=== PATIENT | female | born 1940 | race Caucasian/White ===

== ENCOUNTER 2019-02-07 21:51 | Emergency (ER) | payer OTHER ==
[2019-02-07 22:06] VITALS: TEMP 98
--- NOTE | 2019-02-07 22:25 | C.PDOC ---
History Of Present Illness 78 year old female presents to the ED for evaluation of upper abdominal pain which developed over the past couple days. Patient also reports associated nausea and vomiting. Patient states she is able to tolerate some PO intake. She denies fever, chills, diarrhea, blood in stool or urine and dysuria. Chief Complaint (Nursing): Abdominal Pain History Per: Patient History/Exam Limitations: no limitations Onset/Duration Of Symptoms: Days (2) Current Symptoms Are (Timing): Still Present Location Of Pain/Discomfort: Other (upper abdomen ) Quality Of Discomfort: "Pain" Associated Symptoms: Nausea, Vomiting. denies: Fever, Chills, Diarrhea, Urinary Symptoms Additional History Per: Patient Past Medical History Reviewed: Historical Data, Nursing Documentation, Vital Signs Vital Signs: Last Vital Signs Temp 98 F 02/07/19 22:01 Pulse 75 02/07/19 22:01 Resp 20 02/07/19 22:01 BP 135/82 02/07/19 22:01 Pulse Ox 95 02/07/19 22:01 - Medical History PMH: HTN, Hyperlipidemia Denies: Chronic Kidney Disease Surgical History: No Surg Hx - [facility] Procedures DX ULTRASOUND-HEAD/NECK (04/12/13) PERCUTAN NEEDLE BX OF THYROID GLAND (04/12/13) Family History: States: Unknown Family Hx - Social History Hx Alcohol Use: No Hx Substance Use: No - Immunization History Hx Tetanus Toxoid Vaccination: No Hx Influenza Vaccination: No Hx Pneumococcal Vaccination: No Review Of Systems Constitutional: Negative for: Fever, Chills Gastrointestinal: Positive for: Nausea, Vomiting, Abdominal Pain (upper abdomen ). Negative for: Diarrhea, Hematochezia, Hematemesis Genitourinary: Negative for: Hematuria Physical Exam - Physical Exam Appears: Non-toxic, No Acute Distress Skin: Normal Color, Warm, Dry Head: Atraumatic, Normacephalic Eye(s): bilateral: Normal Inspection Oral Mucosa: Moist Neck: Supple Chest: Symmetrical, No Deformity, No Tenderness Cardiovascular: Rhythm Regular, No Murmur Respiratory: Normal Breath Sounds, No Rales, No Rhonchi, No Wheezing Gastrointestinal/Abdominal: Soft, Tenderness (upper abdomen ), No Guarding, No Rebound Extremity: Normal ROM, Capillary Refill (less than 2 seconds ) Neurological/Psych: Oriented x3, Normal Speech, Normal Cognition ED Course And Treatment - Laboratory Results Result Diagrams: 02/07/19:46 02/07/19 22:46 O2 Sat by Pulse Oximetry: 95 (on RA) Pulse Ox Interpretation: Normal - CT Scan/US CT A/P Other Rad Studies (CT/US): Read By Radiologist, Radiology Report Reviewed CT/US Interpretation: CT SCAN OF THE ABDOMEN AND PELVIS WITH CONTRAST. CLINICAL HISTORY: Upper abdominal pain. TECHNIQUE: Multiple axial and coronal CT images were obtained through the abdomen and pelvis after administration of intravenous contrast material. COMMENTS: Mild cardiomegaly. Uncomplicated colonic diverticulosis. Mild diffuse thickening of the gallbladder. The liver is of uniform attenuation without mass or defect. There is no intra or extrahepatic biliary ductal dilatation. The spleen is normal. The pancreas is of normal contour and attenuation characteristics. There is no evidence of adrenal mass. Both kidneys demonstrate prompt and equal nephrograms. The kidneys are normal in size, shape and configuration. There is no evidence of renal or ureteral mass. No renal or ureteral calculi are identified. There is no hydroureter or hydr onephrosis. No evidence for appendicitis. There is no bowel wall thickening. No evidence for small or large bowel obstruction. There is no evidence of abdominal ascites or lymphadenopathy. There is no evidence of intrinsic or extrinsic bladder mass. There is no pelvic ascites or lymphadenopathy. Distended bladder. Images of the lung bases show no evidence of pleural or parenchymal mass. There are no pleural effusions. The bony structures are free of lytic or blastic lesions. IMPRESSION: Mild thickening of the gallbladder. Sonographic evaluation is suggested. Thank you for your kind referral of this patient. Medical Decision Making Medical Decision Making: Progress: Bloodwork, urinalysis, CT A/P ordered and reviewed. Pepcid IVP, Zofran IVP, Tylenol PO and IV Fluids given. On reassessment, patient is resting comfortably, showing no signs of distress and reports an improvement in her symptoms. Patient is stable for discharge and is advised to f/u with her PMD within 1-2 days for further evaluation. Disposition - Disposition Referrals: Galdino Espinoza, [Non-Staff] - Disposition: HOME/ ROUTINE Disposition Time: 02:45 Condition: IMPROVED Additional Instructions: MIRA MOORE, thank you for letting us take care of you today. The emergency medical care you received today was directed at your acute symptoms. If you were prescribed any medication, please fill it and take as directed. It may take several days for your symptoms to resolve. Return to the Emergency Department if your symptoms worsen, do not improve, or if you have any other problems. Please contact your doctor or call one of the physicians/clinics you have been referred to that are listed on the Patient Visit Information form that is included in your discharge packet. Bring any paperwork you were given at discharge with you along with any medications you are taking to your follow up visit. Our treatment cannot replace ongoing medical care by a primary care provider outside of the emergency department. Thank you for allowing the [facility] team to be part of your care today. Drink plenty of fluids to maintain hydration. Follow up with your primary care doctor in 2-3 days for re-evaluation and further management. Prescriptions: Ibuprofen [Ibu] 400 mg PO Q6 PRN #20 tablet PRN Reason: Pain, Moderate (4-7) Ondansetron ODT [Zofran ODT] 4 mg PO Q8 PRN #15 odt PRN Reason: Nausea/Vomiting Instructions: Acute Abdomen (Belly Pain), Adult (DC) Forms: [employer] ([place]) - Clinical Impression Clinical Impression: Abdominal pain - Scribe Statement The provider has reviewed the documentation as recorded by the Scribe (Lorraine Lyman) Provider Attestation: All medical record entries made by the Scribe were at my direction and personally dictated by me. I have reviewed the chart and agree that the record accurately reflects my personal performance of the history, physical exam, medical decision making, and the department course for this patient. I have also personally directed, reviewed, and agree with the discharge instructions and disposition.
[2019-02-07] MEDS ORDERED: Sodium Chloride 0.9% 1,000 ML IV ONE (22:34)
[2019-02-07 22:49] LABS: BASO # 0.1 K/uL (0.0-0.2); BASO % 0.6 % (0.0-2.0); EOS # 0.1 K/uL (0.0-0.7); EOS % 0.5 % (0.0-4.0); HEMOGLOBIN 12.7 g/dL (11.0-16.0); LYMPH % 16.9 % (20.0-40.0); MEAN CORPUSCULAR HEMOGLOBIN 26.7 pg (27.0-31.0); MEAN CORPUSCULAR HGB CONC 33.8 g/dL (33.0-37.0); MONO # 0.5 K/uL (0.0-0.8); NEUT # 9.2 K/uL (1.8-7.0); NRBC % 0.1 % (0.0-2.0); RBC 4.74 Mil/uL (3.80-5.20); RED CELL DISTRIBUTION WIDTH 14.2 % (11.5-14.5); WHITE BLOOD COUNT 11.8 K/uL (4.8-10.8)
[2019-02-07] MEDS ORDERED: Sodium Chloride 0.9% 1,000 ML ONE (22:53)
[2019-02-07 22:58] VITALS: BMI 32.5
[2019-02-07 23:01] LABS: ALB/GLOB RATIO 1.4 (1.0-2.1); ALBUMIN 4.6 g/dL (3.5-5.0); ALT/SGPT < 6 U/L (9-52); AST/SGOT 27 U/L (14-36); BLOOD UREA NITROGEN 11 mg/dL (7-17); CALCIUM 10.1 mg/dl (8.6-10.4); GFR NON-AFRICAN AMERICAN > 60; LIPASE 143 U/L (23-300)
[2019-02-08] MEDS ORDERED: Iodixanol 320 MG/ML 100 ML BOTTLE IV ONE (00:17)
[2019-02-08 02:14] LABS: SQUAMOUS EPITHIAL < 1 /hpf (0-5); URINE BILIRUBIN NEGATIVE (NEGATIVE); URINE BLOOD NEGATIVE (NEGATIVE); URINE CLARITY Clear (Clear); URINE COLOR Yellow (YELLOW); URINE GLUCOSE (UA) NORMAL (Normal); URINE LEUKOCYTE ESTERASE NEG Leu/uL (Negative); URINE PROTEIN 1+ mg/dL (NEGATIVE); URINE UROBILINOGEN NORMAL mg/dL (0.2-1.0)
[2019-02-08 03:26] VITALS: BP 134/84; PULSE 74; RESP 14
[2019-02-08 06:23] VITALS: O2SAT 95
--- NOTE | 2019-02-08 12:03 | CT ---
Date of service: 02/08/2019 PROCEDURE: CT Abdomen and Pelvis with contrast HISTORY: upper abdominal pain COMPARISON: None available. TECHNIQUE: Contrast dose: 100 mL Visipaque 320 IV Radiation dose: Total exam DLP = 1192.94 mGy-cm. This CT exam was performed using one or more of the following dose reduction techniques: Automated exposure control, adjustment of the mA and/or kV according to patient size, and/or use of iterative reconstruction technique. FINDINGS: LOWER THORAX: No visible consolidation, pleural effusion, or pneumothorax. Borderline cardiomegaly. Dense coronary artery calcifications. Small hiatal hernia/distal esophageal wall thickening. LIVER: Punctate scattered hepatic calcifications, likely granulomas. GALLBLADDER AND BILE DUCTS: Unremarkable. PANCREAS: Unremarkable. SPLEEN: Unremarkable. ADRENALS: Unremarkable. KIDNEYS AND URETERS: Lobulated bilateral renal contours. The kidneys enhance symmetrically. No hydronephrosis or obstructing calculus identified. 14 mm exophytic left hypodensity measures approximately 19 HU higher than expected for a simple cyst. VASCULATURE: No aortic aneurysm. Atherosclerotic calcifications of the aorta and branches. BOWEL: Stomach is nondistended. Lack of oral contrast limits evaluation for bowel pathology. Bowel loops appear within normal limits of caliber without evidence of obstruction. Diverticulosis without CT evidence of acute diverticulitis. APPENDIX: The appendix appears within normal limits of caliber. No secondary signs of acute appendicitis. PERITONEUM: No significant free fluid. No definite free air. LYMPH NODES: No bulky adenopathy identified. BLADDER: Unremarkable. REPRODUCTIVE: Uterus is present. BONES: Degenerative changes. OTHER FINDINGS: None. IMPRESSION: Diverticulosis without CT evidence of acute diverticulitis. 14 mm exophytic left hypodensity measures approximately 19 HU higher than expected for a simple cyst. Renal ultrasound may be considered for further evaluation if indicated. Punctate scattered hepatic calcifications, likely granulomas. Borderline cardiomegaly. Dense coronary artery calcifications. Small hiatal hernia/distal esophageal wall thickening. Additional findings as above. Preliminary impression was provided by [employer].
== END 2019-02-08 03:26 | disposition home or self-care (01) ==
LOC: C.ER 21:51
DX: R10.9 Unspecified abdominal pain (principal); I10 Essential (primary) hypertension; E78.5 Hyperlipidemia, unspecified
CPT/HCPCS: 74177; 80053; 81001; 83690; 85025; 87086; 96374; 96375; 99283; J2405; J7030; Q9967